=== PATIENT | male | born 1980 | race Caucasian/White ===

== ENCOUNTER 2017-06-05 07:40 | Emergency (ER) | payer OTHER ==
[2017-06-05 07:57] VITALS: BP 133/84
--- NOTE | 2017-06-05 08:12 | UC ---
Lower Extremity/Ankle HPI - HPI Summary HPI Summary: 36 YEAR OLD MALE PRESENTS WITH RIGHT KNEE PAIN AFTER SLIDING INTO FIRST BASE WHILE PLAYING SOFTBALL. - History of Current Complaint Chief Complaint: UCLowerExtremity Stated Complaint: LEG INJURY Time Seen by Provider: 06/05/17 08:10 - Allergies/Home Medications Allergies/Adverse Reactions: Allergies Allergy/AdvReac Type Severity Reaction Status Date / Time No Known Allergies Allergy Verified 10/29/16 08:38 PMH/Surg Hx/FS Hx/Imm Hx Other History Of: Negative For: HIV, Hepatitis B - Surgical History Surgical History: None Surgery Procedure, Year, and Place: no head surgeries - Family History Known Family History: Positive: Cardiac Disease Negative: Hypertension - Social History Alcohol Use: Weekly Alcohol Amount: 2x's Substance Use Type: Marijuana Substance Use Comment - Amount & Last Used: occ usage Smoking Status (MU): Never Smoked Tobacco Review of Systems Constitutional: Negative Skin: Negative Eyes: Negative ENT: Negative Respiratory: Negative Cardiovascular: Negative Gastrointestinal: Negative Genitourinary: Negative Motor: Negative Neurovascular: Negative Musculoskeletal: Arthralgia, Myalgia, Other: - RIGHT LATERAL KNEE PAIN Neurological: Negative Psychological: Negative All Other Systems Reviewed And Are Negative: Yes Physical Exam Triage Information Reviewed: Yes Vital Signs: Initial Vital Signs Temp 36.6 C 06/05/17 07:54 Pulse 76 06/05/17 07:54 Resp 16 06/05/17 07:54 BP 133/84 06/05/17 07:54 Pulse Ox 100 06/05/17 07:54 Eye Exam: Normal ENT Exam: Normal Dental Exam: Normal Neck exam: Normal Neck: Positive: 1 Respiratory Exam: Normal Cardiovascular Exam: Normal Abdominal Exam: Normal Musculoskeletal: Positive: Other: - RIGHT LATERAL KNEE PAIN Neurological Exam: Normal Psychological Exam: Normal Skin Exam: Normal Lower Extremity Course/Dx - Differential Dx/Diagnosis Provider Diagnoses: RIGHT LCL SPRAIN Discharge - Discharge Plan Condition: Stable Disposition: HOME Prescriptions: Meloxicam [Mobic] 7.5 mg PO BID PC PRN #30 tab PRN Reason: Pain - Moderate To Severe Patient Education Materials: Knee Pain (ED) Forms: *Work Release Referrals: No Primary Care Phys,NOPCP [Medical Doctor] - Mariah Chen MD [Medical Doctor] -
--- NOTE | 2017-06-05 08:39 | RAD ---
HISTORY: Fall, right lateral knee pain COMPARISONS: None VIEWS: 4, Frontal, lateral, axial, and oblique views of the right knee FINDINGS: BONE DENSITY: Normal. BONES: There is no displaced fracture. JOINTS: There is no arthropathy. There is no suprapatellar joint effusion or lipohemarthrosis. ALIGNMENT: There is no dislocation. SOFT TISSUES: Unremarkable. OTHER FINDINGS: None. IMPRESSION: NO ACUTE OSSEOUS INJURY. IF SYMPTOMS PERSIST, RECOMMEND REPEAT IMAGING.
== END 2017-06-05 08:50 | disposition home or self-care (01) ==
LOC: UCEAST 07:40
DX: S83.421A Sprain of lateral collateral ligament of right knee, initial encounter (principal); X58.XXXA Exposure to other specified factors, initial encounter; Y93.64 Activity, baseball; Y92.320 Baseball field as the place of occurrence of the external cause; F12.90 Cannabis use, unspecified, uncomplicated
CPT/HCPCS: 99212; G0463

== ENCOUNTER 2017-09-17 08:13 | Emergency (ER) | payer OTHER ==
[2017-09-17 08:30] VITALS: BP 141/86
--- NOTE | 2017-09-17 14:52 | UC ---
Calin Ashby Angela, scribed for Una Vallejo MD on 09/17/17 at 0834 . General HPI - HPI Summary HPI Summary: This pt is a 36 y/o male presenting to [facility] c/o cough for 1 month. Pt reports that he has been taking Robitussin for the last week and his dry cough has progressed to a productive cough. He states he has yellow sputum with productive cough for 1 week now. He denies any bloody sputum. Pt is a former smoker (cigarettes). NKDA. Pt has never used an inhaler before. Pt's PCP is Dr. Ma. - History of Current Complaint Chief Complaint: UCRespiratory Stated Complaint: COUGH Time Seen by Provider: 09/17/17 08:25 Hx Obtained From: Patient Onset/Duration: Lasting Weeks, Still Present Timing: Constant Associated Signs & Symptoms: Positive: Cough - Allergy/Home Medications Allergies/Adverse Reactions: Allergies Allergy/AdvReac Type Severity Reaction Status Date / Time No Known Allergies Allergy Verified 09/17/17 08:22 PMH/Surg Hx/FS Hx/Imm Hx Previously Healthy: Yes Other Endocrine History: DENIES: diabetes Other Cardiovascular History: DENIES: HTN Other History Of: Negative For: HIV, Hepatitis B - Surgical History Surgical History: None Surgery Procedure, Year, and Place: no head surgeries - Family History Known Family History: Positive: Cardiac Disease Negative: Hypertension - Social History Occupation: Employed Full-time - [place] Alcohol Use: Weekly Alcohol Amount: 2x's Substance Use Type: Marijuana Substance Use Comment - Amount & Last Used: occ usage Smoking Status (MU): Former Smoker When Did the Patient Quit Smoking/Using Tobacco: 2001 Review of Systems Constitutional: Negative Skin: Negative Eyes: Negative ENT: Negative Respiratory: Cough Cardiovascular: Negative Gastrointestinal: Negative Genitourinary: Negative Motor: Negative Neurovascular: Negative Musculoskeletal: Negative Neurological: Negative Psychological: Negative Is Patient Immunocompromised?: No All Other Systems Reviewed And Are Negative: Yes Physical Exam Triage Information Reviewed: Yes Appearance: Well-Nourished Vital Signs: Initial Vital Signs Temp 98.4 F 09/17/17 08:23 Pulse 85 09/17/17 08:23 Resp 16 09/17/17 08:23 BP 141/86 09/17/17 08:23 Pulse Ox 97 09/17/17 08:23 Vital Signs Reviewed: Yes Eye Exam: Normal ENT: Positive: Other: - Right TM is obscured by cerumen. Left TM is aldridge, mild cerumen. Neck exam: Normal Neck: Positive: Supple, Nontender, No Lymphadenopathy Respiratory: Positive: Chest non-tender, Normal breath sounds, No respiratory distress, No accessory muscle use, Wheezing - faint wheeze on the right., Other : - rhonchorous cough Cardiovascular: Positive: RRR, No Murmur, Pulses Normal, Brisk Capillary Refill Abdominal Exam: Normal Abdomen Description: Positive: Nontender, No Organomegaly, Soft Bowel Sounds: Positive: Present Musculoskeletal Exam: Normal Musculoskeletal: Positive: Strength Intact - moves all 4 ext's Neurological Exam: Normal - nonfocal, grossly intact Psychological Exam: Normal - conversing easily and appropriately Skin Exam: Normal - no visible or reported rash Course/Dx - Course Course Of Treatment: Elevated BP noted and advised to follow up with PCP. F/u pcp recommnended, d/w pt. Questions posed answered to the best of my ability. Addendum 14:50: Initially had planned for cerumen flush, but departed prior to this. Pt called, but as of time of chart completion, has not yet returned call. - Differential Dx - Multi-Symptom Provider Diagnoses: acute bronchitis Discharge - Discharge Plan Condition: Stable Disposition: HOME Prescriptions: Albuterol HFA INHALER* [Ventolin HFA Inhaler*] 2 puff INH Q4H PRN #1 mdi PRN Reason: Wheezing DOXYcycline CAP(*) [DOXYcycline 100MG CAP(*)] 100 mg PO BID #20 cap Patient Education Materials: Acute Bronchitis (ED), Bronchospasm (ED) Forms: *Work Release Referrals: Mat Ma MD [Primary Care Provider] - Additional Instructions: Your blood pressure was elevated during today's visit, 141/86. Please follow up with your primary care provider in 1-2 weeks. Seek medical attention for worse or new problems in the meantime. The documentation as recorded by the Calin baugh Angela accurately reflects the service I personally performed and the decisions made by me, Una Vallejo MD.
== END 2017-09-17 08:58 | disposition home or self-care (01) ==
LOC: UCEAST 08:13
DX: J20.9 Acute bronchitis, unspecified (principal); F12.90 Cannabis use, unspecified, uncomplicated; Z87.891 Personal history of nicotine dependence
CPT/HCPCS: 99212; G0463

== ENCOUNTER 2018-04-23 18:37 | Emergency (ER) | payer OTHER ==
[2018-04-23 19:13] VITALS: BP 123/75
[2018-04-23] MEDS ORDERED: Ibuprofen TAB* 600 MG PO ONE (20:28)
--- NOTE | 2018-04-23 21:06 | RAD ---
HISTORY: Pain and swelling of the distal ulna COMPARISONS: May 19, 2007 VIEWS: 3, Frontal, lateral, and oblique views of the left wrist FINDINGS: BONE DENSITY: Normal. BONES: There is no displaced fracture. JOINTS: There is no arthropathy. ALIGNMENT: There is no dislocation. SOFT TISSUES: Unremarkable. OTHER FINDINGS: None. IMPRESSION: NO ACUTE OSSEOUS INJURY. IF SYMPTOMS PERSIST, RECOMMEND REPEAT IMAGING.
--- NOTE | 2018-04-23 21:38 | UC ---
Siri Ashby Emily, scribed for Shad Maurer MD on 04/23/18 at 2030 . Hand/Wrist HPI - HPI Summary HPI Summary: This patient is a 37 year old M presenting to urgent care with a chief complaint of L wrist pain that began 2 weeks ago and worsened 2 days ago. The patient rates the pain 8/10 in severity. Symptoms aggravated by movement. Symptoms alleviated by nothing. Patient reports decreased ROM. Patient denies any known trauma. Medications reviewed. Allergies reviewed. - History Of Current Complaint Chief Complaint: UCUpperExtremity Stated Complaint: WRIST PAIN Time Seen by Provider: 04/23/18 20:17 Hx Obtained From: Patient Onset/Duration: Sudden Onset, Lasting Weeks, Worse Since - 2 days ago Severity Initially: Severe Severity Currently: Severe Pain Intensity: 8 Pain Scale Used: 0-10 Numeric Aggravating Factor(s): Movement Alleviating Factor(s): Nothing Associated Signs And Symptoms: Positive: Other - Decreased ROM - Allergies/Home Medications Allergies/Adverse Reactions: Allergies Allergy/AdvReac Type Severity Reaction Status Date / Time No Known Allergies Allergy Verified 04/23/18 19:13 Home Medications: Home Medications NK [No Home Medications Reported] 04/23/18 [History Confirmed 04/23/18] PMH/Surg Hx/FS Hx/Imm Hx Previously Healthy: Yes Endocrine History: Other Other Endocrine History: Negative diabetes Cardiovascular History: Other Other Cardiovascular History: Negative HTN Other History Of: Negative For: HIV, Hepatitis B - Surgical History Surgical History: None Surgery Procedure, Year, and Place: no head surgeries - Family History Known Family History: Positive: Cardiac Disease Negative: Hypertension - Social History Occupation: Employed Full-time Lives: Alone Alcohol Use: Occasionally Alcohol Amount: 2x's Substance Use Type: Marijuana Substance Use Comment - Amount & Last Used: occ usage Smoking Status (MU): Former Smoker When Did the Patient Quit Smoking/Using Tobacco: 2001 Review of Systems Constitutional: Other - Negative fever Musculoskeletal: Decreased ROM, Other: - Positive L wrist pain All Other Systems Reviewed And Are Negative: Yes Physical Exam - Summary Physical Exam Summary: General: well-appearing, no pain distress Skin: warm, color reflects adequate perfusion, dry Head: normal Eyes: EOMI, QUEENIE ENT: normal Neck: supple, nontender Respiratory: CTA, breath sounds present Cardiovascular: RRR Abdomen: soft, nontender Bowel: present Musculoskeletal: Some swelling on the medial aspect of the distal ulna. Tender to palpation. Decreased ROM secondary to pain. The worst pain is with abduction , flexion, and extension. Also some pain with flexion of the fourth and fifth fingers. Good capillary refill. No sensation deficit. strength/ROM intact Neurological: sensory/motor intact, A&O x3 Psychological: affect/mood appropriate Triage Information Reviewed: Yes Vital Signs: Initial Vital Signs Temp 98.5 F 04/23/18 19:10 Pulse 75 04/23/18 19:10 Resp 18 04/23/18 19:10 BP 123/75 04/23/18 19:10 Pulse Ox 98 04/23/18 19:10 Vital Signs Reviewed: Yes Diagnostics - Radiology Wrist XR Radiology Interpretation Completed By: Radiologist - Wrist XR reveals, per radiologist, no acute osseous injury. If symptoms persist, recommend repeat imaging. Physician has reviewed this radiology report. Re-Evaluation - Re-Evaluation First Eval Re-Evaluation Time: 21:32 Change: Unchanged Comment: Discussed results with pt Hand/Wrist Course/Dx - Course Course Of Treatment: ICE, SPLINT, IBUPROFEN, REST. F/U PMD; RECHECK SOONER IF WORSE. - Differential Dx/Diagnosis Provider Diagnoses: LEFT WRIST PAIN. TENDONITIS Discharge - Sign-Out/Discharge Documenting (check all that apply): Discharge/Admit/Transfer - Discharge Plan Condition: Stable Disposition: HOME Patient Education Materials: Wrist Injury (ED), Tendinitis (ED) Forms: *Work Release Referrals: Mat Ma MD [Primary Care Provider] - Additional Instructions: FOLLOW UP WITH YOUR DOCTOR. GET RECHECKED FOR ANY WORSENING OF YOUR CONDITION OR QUESTIONS OR CONCERNS. - Billing Disposition and Condition Condition: STABLE Disposition: HOME The documentation as recorded by the Siri baugh Emily accurately reflects the service I personally performed and the decisions made by me, Shad Maurer MD.
== END 2018-04-23 22:12 | disposition home or self-care (01) ==
LOC: UCEAST 18:37
DX: M25.532 Pain in left wrist (principal); M77.9 Enthesopathy, unspecified; Z87.891 Personal history of nicotine dependence
CPT/HCPCS: 99212; A9270-GY; G0463

== ENCOUNTER 2018-05-29 13:33 | Day surgery (SDC) | payer OTHER ==
[~2018-05-29 13:33] MED LIST: Buffered Lidocaine 0.9% SYRIN* 5 ML/SYR SYRINGE INTRADERM ONE; Dexamethasone IV* 4 MG/ML 1 ML (4 MG) IV SLOW PU ONE; Famotidine IV* 10 MG/ML 2 ML (20 mg) IV ONE
[2018-05-29] MEDS ORDERED: Dexamethasone IV* 4 MG/ML 1 ML (4 MG) ONE (13:43)
[2018-05-29] MEDS ORDERED: Famotidine IV* 10 MG/ML 2 ML (20 mg) ONE (13:43)
[2018-05-29] MEDS ORDERED: fentaNYL* 50 MCG/ML 2 ML VIAL (100 MCG VIAL) ONE ×2 (14:05→15:56)
[2018-05-29] MEDS ORDERED: Midazolam* 1 MG/ML 2 ML VIAL (2 MG) ONE (14:05)
[2018-05-29] MEDS ORDERED: Propofol* 10 MG/ML 20 ML BTL IV PUSH ONE (15:42)
[2018-05-29] MEDS ORDERED: Ondansetron INJ* 2 MG/ML VIAL ONE (15:42)
[2018-05-29] MEDS ORDERED: Ketorolac INJ* 30 MG/ML 1 ML VIAL ONE (15:42)
[2018-05-29] MEDS ORDERED: Ibuprofen TAB* 600 MG ONE (16:47)
[2018-05-29] MEDS ORDERED: Naloxone* 0.4 MG/ML 1 ML VIAL IV PRN (16:49)
[2018-05-29] MEDS ORDERED: Acetaminophen TAB* 325 MG ONE (16:50)
[2018-05-29 16:59] VITALS: BP 126/76
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
== END 2018-05-29 17:10 | disposition home or self-care (01) ==
LOC: OREAST 13:33
PROVIDERS: ATTEND Orthopaedic Surgery Hand Surgery
DX: M65.842 Other synovitis and tenosynovitis, left hand (principal); Z87.891 Personal history of nicotine dependence
CPT/HCPCS: 87070; 87073; 87102; 87116; 87205; 87206; 88304; 88305; 88311; A9270-GY; J1100; J1885; J2250; J2405; J2704; J3010

== ENCOUNTER 2018-10-13 08:54 | Day surgery (SDC) | payer OTHER ==
[~2018-10-13 08:54] MED LIST changes: -Dexamethasone IV* 4 MG/ML 1 ML (4 MG) IV SLOW PU ONE; -Famotidine IV* 10 MG/ML 2 ML (20 mg) IV ONE; +Sodium Citrate/Citric Acid* 15 ML UDC PO ONE
[2018-10-13] MEDS ORDERED: Sodium Citrate/Citric Acid* 15 ML UDC ONE (09:41)
[2018-10-13] MEDS ORDERED: ceFAZolin 2 GM PREMIX in ORs 2 GM/50 ML BAG IVPB ONE (09:41)
[2018-10-13] MEDS ORDERED: fentaNYL* 50 MCG/ML 2 ML VIAL (100 MCG VIAL) ONE ×3 (11:48→14:49)
[2018-10-13] MEDS ORDERED: Midazolam* 1 MG/ML 2 ML VIAL (2 MG) ONE (11:49)
[2018-10-13] MEDS ORDERED: Propofol* 10 MG/ML 20 ML BTL IV PUSH ONE (11:49)
[2018-10-13] MEDS ORDERED: Bupivacaine 0.25% SDV PF* 10 ML VIAL INJ ONE (12:16)
[2018-10-13] MEDS ORDERED: Naloxone* 0.4 MG/ML 1 ML VIAL IV PRN (12:38)
[2018-10-13] MEDS ORDERED: DiMENhydriNATE IV* 50 MG/ML VIAL IV PUSH PRN (12:38)
[2018-10-13] MEDS ORDERED: Ondansetron INJ* 2 MG/ML VIAL ONE (13:01)
[2018-10-13] MEDS ORDERED: Dexamethasone IV* 4 MG/ML 1 ML (4 MG) ONE (13:01)
[2018-10-13] MEDS ORDERED: Ketorolac INJ* 30 MG/ML 1 ML VIAL ONE (13:01)
[2018-10-13] MEDS ORDERED: HYDROcodone/ACETAMIN 5-325 MG* 1 TAB ONE (14:49)
[2018-10-13] MEDS: fentaNYL* 50 MCG/ML 2 ML VIAL (100 MCG VIAL) IV PRN ×2 (14:52→14:57)
[2018-10-13 15:52] VITALS: BP 141/92
--- NOTE | 2018-10-14 16:06 | OP ---
OPERATIVE REPORT: DATE OF OPERATION: 10/13/18 DATE OF : 78 SURGEON: Ramana Spring MD [employer] VICE PRESIDENT: LEXY Amaya An early childhood teacher assistant was needed for the procedure to aid in positioning of the arm and retraction. ANESTHESIOLOGIST: Dr. Erickson. ANESTHESIA: General. 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 OPERATIVE PROCEDURES: 1. Left wrist arthroscopic triangular fibrocartilage complex debridement. 2. Left ulnar shortening osteotomy. INDICATIONS: Carloz is a patient who has gouty disease and he has degenerative ulnar side of the wris t. He is ulnar positive on his x-rays and MRI scan. We had talked about risks and benefits. He und erstands there is a risk of persistent pain despite surgery and risk of stiffness or instability of t he DRUJ. He also understands risk of nonunion. He wishes to proceed. ESTIMATED BLOOD LOSS: 2 mL. COMPLICATIONS: None. FINDINGS: See above and below. DESCRIPTION OF PROCEDURE: Carloz was seen in the preoperative holding area. The correct site, side, and procedure were identified. We came back to the operating room where the arm was prepped and drap ed in the usual fashion. A time-out was performed. The arm was positioned in the Acumed traction tower and inline traction was applied. The arm was exs anguinated with the Esmarch and the tourniquet inflated to 250 mmHg. I then developed a 3-4 portal i n standard fashion with an 11-blade followed by mosquito, followed by a blunt trocar. The camera was introduced in a 3- 4 portal. The diagnostic arthroscopy was begun. The radial-sided structures loo ked good. Ulnarly, he had a degenerative TFCC and a central tear that extended more palmarly. I use d the combination of the shaver and the bitter to debride the TFCC tear. Once I had completed the de bridement and everything was back to nice stable healthy edges, I went ahead and withdrew the arthros copic equipment and returned our attention to the open portion of the procedure. The arm was taken out of the traction tower. The elbow was flexed. A longitudinal incision was made over the distal third of the ulnar diaphysis. Dissection was carried down and the full thickness fl aps were raised off of the fascia. The periosteum was split in the interval between the ECU and the FCU. Subperiosteal flaps were raised off of the ulna. The TriMed ulnar shortening osteotomy plate w as brought in and clamped into place. One screw was placed in the distal part of the oblong hole. T he 3 screws on the opposite of the plate were filled with cortical screws. I then placed my guide fo r my lag screw and this was pinned into place with 2 pins. Preoperatively, I templated a 4 mm osteot ryan and so I went ahead and the fit the 4 mm cutting block. This was pinned and clamed into place an d then sagittal saw was used to complete the cut. I then removed this and placed cutting block B int o place and this was pinned and clamped and then a second parallel cut was made with the sagittal saw using irrigation to try to prevent dermal necrosis. After this was done, the guide was placed back o nto with the lag screw. The compression clamp was then applied and held in place with the K-wire jus t gage to the midline of the ulna. The decompression clamp was then used to compress the osteotomy after the oblong hole screw had been loosened. I then drilled and placed a lag screw in standard fas hion. I retightened the screw in the oblong hole. I then placed 2 additional screws to finish the i nstrumentation. The compression was excellent. It was absolutely perfectly aligned. Everything was irrigated out. The periosteum and the fascia was closed over the plate with 3-0 Vicryl suture. The s kin was closed with 3-0 Monocryl suture and Steri-strips. Marking was infiltrated all around the ope rative wounds and operative areas. Steri-Strips were applied. The wounds were dressed and a sugar-t sejal splint was applied with the forearm in neutral rotation. Tourniquet was deflated and the hand pi nked up immediately. He was then awoken up and taken to the recovery room in stable condition. [id number]/[facility] #: [id number]
== END 2018-10-13 15:56 | disposition home or self-care (01) ==
LOC: OR 08:54
PROVIDERS: ATTEND Orthopaedic Surgery Hand Surgery
DX: M24.832 Other specific joint derangements of left wrist, not elsewhere classified (principal); M1A.9XX0 Chronic gout, unspecified, without tophus (tophi); Z87.891 Personal history of nicotine dependence
CPT/HCPCS: 76000; A9270-GY; C1713; C1776; J0690; J1100; J1885; J2250; J2405; J2704; J3010; J3490